=== PATIENT | female | born 1990 | race Caucasian/White ===

== ENCOUNTER 2016-08-13 08:43 | Emergency (ER) | payer SELFPAY ==
[2016-08-13 08:51] VITALS: TEMP 98.1
--- NOTE | 2016-08-13 09:12 | CPEKG ---
Heart Rate: 56 RR Interval: 1071 P-R Interval: 156 QRSD Interval: 72 QT Interval: 408 QTC Interval: 394 P Merkel: 11 QRS Merkel: 33 T Wave Merkel: 38 EKG Severity - NORMAL ECG - EKG Impression: SINUS RHYTHM Electronically Signed By: Heriberto Guzman 13-Aug-2016 09:37:19
[2016-08-13] MEDS ORDERED: NS 1,000 ML IV ONE (09:21)
--- NOTE | 2016-08-13 09:28 | EDPHY ---
H & P Smoking Status: Never smoked Time Seen by Provider: 08/13/16 09:05 HPI/ROS: CHIEF COMPLAINT: Dizziness, near syncopal HISTORY OF PRESENT ILLNESS: 26-year-old female presents to the emergency department by private vehicle feeling dizzy and feeling very lightheaded. The patient states that she has had these episodes intermittently over last few months. She does not know the cause with a trigger. She did have a Holter monitor done when she lived in [place] several months ago, although she never did find out the results of this. She denies pain in her chest or difficulty breathing. She feels her symptoms have improved although not completely resolved. She denies headache. Denies abdominal pain or vomiting. Last menstrual period was 3 weeks ago and she denies . She did eat breakfast this morning. She has also experienced this lightheaded feeling with activity, while she was hiking few weeks ago. REVIEW OF SYSTEMS: Constitutional: No fever, no chills. Eyes: No double or blurry vision. ENT: No sore throat. Respiratory: No cough, no shortness of breath. Cardiac: No chest pain. Gastrointestinal: No abdominal pain, vomiting or diarrhea. Genitourinary: No dysuria. Musculoskeletal: No neck or back pain. Skin: No rashes. Neurological: No headache. (MichaelCaryn Lala) Past Medical/Surgical History: Negative (Caryn Rodriguez) Social History: Single (Caryn Rodriguez) Physical Exam: General Appearance: Alert, no distress. 146/77, 99% on room air, heart rate 63 Eyes: Pupils equal and round. Extraocular motions are all intact. No nystagmus. ENT: Mouth: Mucous membranes moist. Respiratory: No wheezing, rhonchi, or rales, lungs are clear to auscultation. Cardiovascular: Regular rate and rhythm. Gastrointestinal: Abdomen is soft and nontender, no masses, no rebound or guarding, bowel sounds normal. Neurological: Alert and oriented x 3, cranial nerves II through XII grossly intact Skin: Warm and dry, no rashes. Musculoskeletal: Nontender to palpate along the cervical, thoracic or lumbar spine. Neck is supple. Extremities: Full range of motion and no peripheral edema. Psychiatric: Patient is oriented X 3, there is no agitation. (MichaelCaryn M) Constitutional: Initial Vital Signs Temperature (C) 36.7 C 08/13/16 08:45 Heart Rate 63 08/13/16 08:45 Respiratory Rate 16 08/13/16 08:45 Blood Pressure 146/77 H 08/13/16 08:45 O2 Sat (%) 99 08/13/16 08:45 O2 Delivery Mode Room Air Allergies/Adverse Reactions: bandaids Allergy (Uncoded 08/13/16 08:52) Home Medications: Medication Instructions Recorded NK [No Known Home Meds] 08/13/16 Medical Decision Making - Diagnostics EKG Interpretation: EKG interpreted by me shows normal sinus rhythm with normal interval and axis. QRS is normal. There is some diffuse T-wave flattening especially laterally. No significant ST elevation or depression. Rate is 89 (Heriberto Guzman) ED Course/Re-evaluation: 26-year-old female presents to the emergency department by private vehicle with near syncopal episodes. The patient had a normal EKG. Laboratory studies including CBC, chemistries were all within normal limits. HCG was negative. The patient was kept on a secured entrance monitor throughout her stay in the emergency department over 2 hours, she did not have any recurring near syncopal events. She feels her symptoms have completely resolved and she is comfortable being discharged home. I did give her Cardiology referral and encouraged close follow -up for possible Holter monitoring and follow-up. She was encouraged to return if she developed recurring syncope or if she felt worse in any way. The case was discussed with Dr. Heriberto Guzman, secondary supervising physician, who did not directly evaluate the patient but agrees with treatment and plan. (Caryn Rodriguez) Differential Diagnosis: Near syncope including but not limited to vasovagal syncope, arrhythmia, dehydration, and blood loss. (Caryn Rodriguez) - Data Points Laboratory Results: Laboratory Results 08/13/16 09:24 08/13/16 09:24 08/13/16 08/13/16 08/13/16 09:24 09:24 09:24 WBC 4.39 10^3/uL 10^3/uL (3.80-9.50) RBC 4.78 10^6/uL 10^6/uL (4.18-5.33) Hgb 14.0 g/dL g/dL (12.6-16.3) Hct 42.6 % % (38.0-47.0) MCV 89.1 fL fL (81.5-99.8) MCH 29.3 pg pg (27.9-34.1) MCHC 32.9 g/dL g/dL (32.4-36.7) RDW 13.5 % % (11.5-15.2) Plt Count 182 10^3/uL 10^3/uL (150-400) MPV 10.4 fL fL (8.7-11.7) Neut % (Auto) 55.6 % % (39.3-74.2) Lymph % (Auto) 34.6 % % (15.0-45.0) [place] % (Auto) 7.3 % % (4.5-13.0) Eos % (Auto) 1.8 % % (0.6-7.6) Baso % (Auto) 0.5 % % (0.3-1.7) Nucleat RBC Rel Count 0.0 % % (0.0-0.2) Absolute Neuts (auto) 2.44 10^3/uL 10^3/uL (1.70-6.50) Absolute Lymphs (auto) 1.52 10^3/uL 10^3/uL (1.00-3.00) Absolute Monos (auto) 0.32 10^3/uL 10^3/uL (0.30-0.80) Absolute Eos (auto) 0.08 10^3/uL 10^3/uL (0.03-0.40) Absolute Basos (auto) 0.02 10^3/uL 10^3/uL (0.02-0.10) Absolute Nucleated RBC 0.00 10^3/uL 10^3/uL (0-0.01) Immature Gran % 0.2 % % (0.0-1.1) Immature Gran # 0.01 10^3/uL 10^3/uL (0.00-0.10) Sodium 144 mEq/L mEq/L (134-144) Potassium 4.3 mEq/L mEq/L (3.5-5.2) Chloride 106 mEq/L mEq/L (97-110) Carbon Dioxide 26 mEq/l mEq/l (22-31) Anion Gap 12 mEq/L mEq/L (8-16) BUN 11 mg/dL mg/dL (7-23) Creatinine 0.6 mg/dL mg/dL (0.6-1.0) Estimated GFR > 60 Glucose 87 mg/dL mg/dL (70-100) Calcium 9.8 mg/dL mg/dL (8.5-10.4) Beta HCG, Qual NEGATIVE Medications Given: Discontinued Medications Sodium Chloride (Ns) 1,000 mls @ 0 mls/hr IV ONCE ONE PRN Reason: Wide Open Stop: 08/13/16 09:22 Last Admin: 08/13/16 09:32 Dose: 1,000 mls Departure - Departure Disposition: Home, Routine, Self-Care Clinical Impression: Near syncope Condition: Good Instructions: Near Syncope (ED) Additional Instructions: Call to schedule appointment with [facility] to schedule Holter monitor and follow up. Activity as tolerated. Return if you develop any recurring symptoms like you are going to pass out, if you feel pain in your chest, shortness of breath, or if you feel worse in any way. Referrals: Jordan Zhang MD [Medical Doctor] - 2-3 days, call for appt. ([facility] on- call)
[2016-08-13 09:37] LABS: % IMMATURE GRANULYOCYTES 0.2 % (0.0-1.1); ABSOLUTE IMMATURE GRANULOCYTES 0.01 10^3/uL (0.00-0.10); ADD DIFF? NO; ADD MORPH? NO; ADD SCAN? NO; ATYPICAL LYMPHOCYTE FLAG 10 (0-99); FRAGMENT RBC FLAG 0 (0-99); HEMATOCRIT 42.6 % (38.0-47.0); LEFT SHIFT FLG 0 (0-99); LIPEMIA HEMOLYSIS FLAG 80 (0-99); MEAN CELL HEMOGLOBIN 29.3 pg (27.9-34.1); MEAN CELL HEMOGLOBIN CONCENTR. 32.9 g/dL (32.4-36.7); MEAN CELL VOLUME 89.1 fL (81.5-99.8); MEAN PLATELET VOLUME 10.4 fL (8.7-11.7); PLATELET CLUMPS FLAG 0 (0-99); PLATELET COUNT 182 10^3/uL (150-400); RED BLOOD CELL COUNT 4.78 10^6/uL (4.18-5.33); RED CELL DISTRIBUTION WIDTH 13.5 % (11.5-15.2)
[2016-08-13 10:02] LABS: CALCIUM 9.8 mg/dL (8.5-10.4); CARBON DIOXIDE 26 mEq/l (22-31); CHLORIDE 106 mEq/L (97-110); CREATININE 0.6 mg/dL (0.6-1.0); GLOMERULAR FILTRATION RATE > 60; GLUCOSE 87 mg/dL (70-100); SODIUM 144 mEq/L (134-144)
[2016-08-13 10:11] LABS: ANION GAP 12 mEq/L (8-16); POTASSIUM 4.3 mEq/L (3.5-5.2)
[2016-08-13 11:05] VITALS: BP 114/75; PULSE 60; RESP 12; O2SAT 98
== END 2016-08-13 11:05 | disposition home or self-care (01) ==
DX: R55 Syncope and collapse (principal)